=== PATIENT | female | born 1985 | race Caucasian/White ===

== ENCOUNTER 2017-07-17 07:23 | Emergency (ER) | payer BC ==
[~2017-07-17] VITALS: Ht 154.9 cm; Wt 53.6 kg
[~2017-07-17 07:23] MED LIST: BIRTH CONTROL PILL; NORCO 325 MG-7.1 TAB PO; PHENERGAN 25 TA25 MG PO; PHENERGAN25 MG RC; PRENATAL1 TA1 PO
[2017-07-17 07:26] VITALS: TEMP 98.2
[2017-07-17] MEDS ORDERED: VYVANSE40 MG PO (07:28)
[2017-07-17 08:22] LABS: BASO % 0.3 % (0.0-2.0); EOS # 0.1 (0.0-0.7); EOS % 0.6 % (0-4.0); GRAN # 9.4 (1.4-6.5); GRAN % 82.1 % (42.2-75.2); HEMATOCRIT 46.1 % (37.0-47.0); LYMPH # 1.4 (1.2-3.4); MEAN CELL VOLUME 88 fl (80.0-100.0); MEAN CORPUSCULAR HEMOGLOBIN 29 pg (27.0-31.0); MEAN CORPUSCULAR HGB CONC 33 g/dl (33.0-37.0); MEAN PLATELET VOLUME 10.9 fl (7.4-10.4); MONO # 0.5 (0.1-0.6); MONO % 4.7 % (1.7-9.3); PLATELET COUNT 208 K/mm3 (130-400); RED BLOOD COUNT 5.22 M/mm3 (4.10-5.30); REDCELL DISTRIBUTION WIDTH-CV 12.7 % (11.5-14.5); WHITE BLOOD COUNT 11.5 K/mm3 (4.8-10.8)
[2017-07-17 08:28] LABS: PH 7 (5-8); SQUAMOUS EPITHELIAL None Seen /hpf; URINE APPEARANCE Clear; URINE BACTERIA None Seen /hpf; URINE BILIRUBIN Negative (NEGATIVE); URINE BLOOD Negative (NEGATIVE); URINE COLOR Straw; URINE GLUCOSE Negative (NEGATIVE); URINE KETONE Negative (NEGATIVE); URINE RBC None Seen /hpf; URINE UROBILINOGEN Negative (NEGATIVE); URINE WBC 0-2 /hpf
[2017-07-17 08:40] LABS: ADJUSTED CALCIUM 9.1 mg/dL (8.4-10.2); ALBUMIN 4.2 gm/dL (3.5-5.0); BILIRUBIN,TOTAL 0.6 mg/dL (0.0-1.0); CALCIUM 9.3 mg/dL (8.4-10.2); CREATININE, serum 0.77 mg/dL (0.52-1.25); TOTAL PROTEIN 7.2 gm/dL (6.4-8.2)
[2017-07-17 11:45] VITALS: BP 122/80; PULSE 92
== END 2017-07-17 11:47 | disposition home or self-care (01) ==
LOC: COL.ER 07:23
PROVIDERS: Nurse Practitioner
DX: K92.1 Melena (principal); R10.11 Right upper quadrant pain; Z98.890 Other specified postprocedural states
CPT/HCPCS: J2270; J2405; J7030